=== PATIENT | male | born 1965 | race Caucasian/White ===

== ENCOUNTER 2018-09-02 14:26 | Outpatient (CLI) | payer MEDICAID | END 2018-09-02 14:27 | disposition home or self-care (01) | LOC: LAB.F 14:26 | PROVIDERS: ATTEND Nurse Practitioner | DX: Z79.01 Long term (current) use of anticoagulants (principal); I48.2 Chronic atrial fibrillation | CPT/HCPCS: 85610 ==

== ENCOUNTER 2018-09-09 15:04 | Outpatient (CLI) | payer MEDICARE, MEDICAID ==
[2018-09-09 17:45] LABS: BASOPHILS # (AUTO) 0.1 10^3/uL (0.0-0.1); BASOPHILS % (AUTO) 1.2 %; EOSINOPHILS # (AUTO) 0.1 10^3/uL (0.0-0.7); EOSINOPHILS % (AUTO) 1.5 %; HGB - HEMOGLOBIN 13.2 g/dL (14.0-18.0); LYMPHOCYTES # (AUTO) 1.2 10^3/uL (1.5-3.5); LYMPHOCYTES % (AUTO) 13.7 %; MEAN CORPUSCULAR HEMOGLOBIN 28.2 pg (27.0-31.0); MEAN PLATELET VOLUME 9.8 fL (7.4-11.4); MONOCYTES # (AUTO) 0.5 10^3/uL (0.0-1.0); NEUTROPHILS % (AUTO) 77.6 %; PLT - PLATELET COUNT 298 10^3/uL (130-450); RED BLOOD COUNT 4.67 10^6/uL (4.70-6.10); RED CELL DISTRIBUTION WIDTH 14.8 % (12.0-15.0)
[2018-09-09 18:00] LABS: ALBUMIN 3.6 g/dL (3.2-5.5); ALKALINE PHOSPHATASE 65 IU/L (42-121); ALT ALANINE AMINOTRANSFERASE 13 IU/L (10-60); AST ASPARTATE AMINOTRANSFERASE 16 IU/L (10-42); BILIRUBIN,TOTAL 0.7 mg/dL (0.2-1.0); BUN - BLOOD UREA NITROGEN 15 mg/dL (6-20); CALCIUM 8.9 mg/dL (8.5-10.3); CARBON DIOXIDE - CO2 35 mmol/L (21-32); CHLORIDE 94 mmol/L (101-111); CHOL/HDL RATIO 5.2 (<5.0); CHOLESTEROL 219 mg/dL; CREATININE 1.2 mg/dL (0.6-1.2); GFR - MDRD 63 (>89); GLUCOSE 122 mg/dL (70-100); HDL CHOLESTEROL 42 mg/dL; LDL CHOLESTEROL,CALCULATED 159 mg/dL; LDL/HDL RATIO 3.8 (<3.6); SODIUM 137 mmol/L (135-145); TOTAL PROTEIN 7.3 g/dL (6.7-8.2); VLDL CHOLESTEROL 18 mg/dL
== END 2018-09-09 15:05 | disposition home or self-care (01) ==
LOC: LAB.F 15:04
PROVIDERS: ATTEND Physician Assistant Medical
DX: Z79.01 Long term (current) use of anticoagulants (principal); Z00.00 Encounter for general adult medical examination without abnormal findings; I10 Essential (primary) hypertension; Z12.5 Encounter for screening for malignant neoplasm of prostate
CPT/HCPCS: 36415; 80053; 80061; 85025; 85610; G0103; 83721; 84153

== ENCOUNTER 2018-09-23 08:00 | Outpatient (CLI) | payer MEDICAID, MEDICARE | END 2018-09-23 23:59 | disposition home or self-care (01) | LOC: LAB.F 08:00 | PROVIDERS: ATTEND Physician Assistant Medical | DX: Z79.01 Long term (current) use of anticoagulants (principal) | CPT/HCPCS: 85610 ==

== ENCOUNTER 2018-10-06 13:53 | Outpatient (CLI) | payer MEDICARE, MEDICAID | END 2018-10-06 13:54 | disposition home or self-care (01) | LOC: LAB.F 13:53 | PROVIDERS: ATTEND Physician Assistant Medical | DX: Z79.01 Long term (current) use of anticoagulants (principal) | CPT/HCPCS: 85610 ==

== ENCOUNTER 2018-10-28 15:25 | Outpatient (CLI) | payer MEDICARE, MEDICAID ==
[2018-10-28 18:38] LABS: ABSOLUTE RETICS # AUTO 0.084 10^6/uL (0.020-0.110); BASOPHILS # (AUTO) 0.1 10^3/uL (0.0-0.1); BASOPHILS % (AUTO) 0.9 %; EOSINOPHILS # (AUTO) 0.1 10^3/uL (0.0-0.7); EOSINOPHILS % (AUTO) 0.9 %; HGB - HEMOGLOBIN 14.2 g/dL (14.0-18.0); LYMPHOCYTES # (AUTO) 1.7 10^3/uL (1.5-3.5); MEAN CORPUSCULAR HEMOGLOBIN 28.5 pg (27.0-31.0); MEAN CORPUSCULAR HGB CONC 31.9 g/dL (32.0-36.0); MEAN CORPUSCULAR VOLUME 89.4 fL (80.0-94.0); MEAN PLATELET VOLUME 11.4 fL (7.4-11.4); MONOCYTES # (AUTO) 0.8 10^3/uL (0.0-1.0); MONOCYTES % (AUTO) 7.3 %; NEUTROPHILS % (AUTO) 74.4 %; PLT - PLATELET COUNT 351 10^3/uL (130-450); RED BLOOD COUNT 4.98 10^6/uL (4.70-6.10); RED CELL DISTRIBUTION WIDTH 14.8 % (12.0-15.0); WHITE BLOOD COUNT 10.7 x10^3/uL (4.8-10.8)
[2018-10-28 19:18] LABS: FERRITIN 26.8 ng/mL (23.9-336.2)
[2018-10-28 19:21] LABS: FOLATE 12.5 ng/mL (5.90 - >24.8)
[2018-10-28 19:42] LABS: % IRON SATURATION 24 % (20-50); IRON 87 ug/dL (45-182); TOTAL IRON BINDING CAPACITY 356 ug/dL (250-450); TRANSFERRIN 254 mg/dL (180-329)
== END 2018-10-28 23:59 | disposition home or self-care (01) ==
LOC: LAB.N 15:25
PROVIDERS: ATTEND Family Medicine
DX: D64.9 Anemia, unspecified (principal)
CPT/HCPCS: 36415; 82607; 82728; 82746; 83540; 84466; 85025; 85044

== ENCOUNTER 2018-11-14 12:57 | Outpatient (CLI) | payer MEDICARE, MEDICAID ==
[2018-11-14 14:14] VITALS: BP 130/90
--- NOTE | 2018-11-14 14:14 | CONSULTATION NOTE ---
Information from patient questionnaire entered by Faby Concepcion. I have reviewed and concur with the information entered by Faby Concepcion. This document represents the service I personally performed and the decisions made by me, Matthew Thompson MD, [facility]. - History of Present Illness Chief Complaint: Observed pauses in breathing He had a CPAP + oxygen in [place]. He said the equipment helped. He moved here 6 months ago and the equipment was left in [place]. The patient tells me that he normally goes to bed around 2 am, and it takes him approximately 120 minutes to fall asleep. He takes Ambien 10 mg. He has been told that he snores loudly and irregularly at night. He has been observed to stop breathing in his sleep. His can still sleep in the same bed. He can recall waking up on the average of 4 times during the night. Most of the time he wakes up because of having to use the bathroom and his own snore. There is not a lot of tossing and turning in his sleep. Generally he can recall having dreams. He usually wakes up at 9:00am-12:00pm and does not feel refreshed. He usually does have a morning headache. During the day he complains of feeling sleepy and fatigued. He has fallen asleep while driving and has gone out of the trevor. He usually does not take naps during the day. If he naps, upon falling asleep during the day he denies having vivid dreams. There is no somniloquy (sleep talking) or somnambulism (sleep walking). He has never experienced sleep paralysis, cataplexy, or symptoms of restless leg syndrome. He reports having impaired concentration during the day. [place] Sleepiness Scale Score: 4 - Past Medical History Past Medical History: Congestive Heart Failure, Coronary Heart Disease, Arrythmia (atrial fibrillation), Fibromyalgia, Depression, Mood disorder, GERD, Other (AFib) - Allergies/Home Medications Allergies No Known Drug Allergies Allergy (Verified 11/02/18 10:45) Home Medications Acetaminophen [Tylenol Extra Strength] 2 tab ORAL Q8H PRN 11/02/18 [History Confirmed 11/02/18] Amlodipine Besylate 1 tab ORAL DAILY 11/02/18 [History Confirmed 11/02/18] Chlorthalidone 1 tab ORAL DAILY 11/02/18 [History Confirmed 11/02/18] Lisinopril 1 tab ORAL DAILY 11/02/18 [History Confirmed 11/02/18] Metoprolol Tartrate 1 tab PO DAILY 11/02/18 [History Confirmed 11/02/18] Zolpidem Tartrate [Ambien] 1 tab ORAL QPM PRN 11/02/18 [History Confirmed 11/02/18] omeprazole albuterol inhaler Brio inhaler warfarin Allergies and home medications reviewed: Yes - Social History The patient's occupation is a [employer]. Patient is and lives in [place]. Smoked in the past 12 months: Yes Cigarettes per day (20/pack): 2 Years of smokin Quit Date: 06/2018 Smoking Pack Years: 3.0 Alcohol use: Yes Amount and frequency: 1 drink Caffeine use: No - Review of Systems Cardiovascular: reports: high blood pressure, irregular heart rate or pulse, leg or foot swelling Respiratory: reports: wheeze Gastrointestinal: reports: heartburn, abdominal pain Neurological: reports: headaches. denies: seizure, head trauma, disorientation, speech dysfunction, gait or balance problems, fainting or unconsciousness, other: Psychiatric: reports: depression Ear/Nose/Throat: reports: wisdom teeth removed Endocrine: reports: increased urination - Physical Examination Vital signs obtained and documented by: Dr. Thompson Blood Pressure: 130/90 Cuff size: long Heart Rate: 88 O2 Saturation: 95 Height: 6 ft 3 in Weight (kg): 189.148 kg Body Mass Index: 52.1 BMI Classification: Class 3 Neck circumference: 18 Mood/affect: normal HEENT: No craniofacial malformation Nostrils: patent to airflow Turbinates: normal Septum: midline Mouth and throat: narrow oropharynx Soft palate: long Hard palate: normal Uvula: normal Tongue: normal in size Tonsils: 1+ Chin and jaw: normal size and position Neck: normal w/o lymphadenopathy or thyromegaly Heart: irregular rhythm Lungs: clear bilaterally Abdomen: soft Extremities: 1+ edema Neurologic: intact - Impression 1. Obstructive Sleep Apnea-Hypopnea Syndrome, as previously diagnosed but presently untreated because he left his CPAP in [place] when he moved here six months ago. He appears to be symptomatic for loud and irregular snoring, frequent awakening during the night, unrefreshed sleep, cognitive impairment, and excessive daytime sleepiness. Narrow oropharynx and obesity are common predisposing factors for obstructive sleep apnea-hypopnea syndrome. I recommend proceeding to polysomnography to confirm the diagnosis and to assess severity. If the patient has significant sleep disordered breathing, a manual CPAP titration study will also be performed to find the optimal treatment pressure. I informed the patient of what the sleep studies involve and after some discussion, obtained agreement to proceed. The pathophysiology of obstructive sleep apnea-hypopnea syndrome was discussed with the patient and health risks of cardiovascular and cerebrovascular disease if not treated. Risks of drowsy driving discussed in detail and patient advised to avoid long distance driving and to pick pulling machine operator at the first sign of drowsiness. Patient agreed to plan. - Plan Schedule polysomnography +- manual CPAP titration study. The studies will be performed in [place] because his weight is beyond the capacity of the beds here. Avoid long distance driving or driving when feeling sleepy. Avoid alcohol, sedative and muscle relaxant around bedtime. Attempt to lose weight. Review instructions provided by trained office staff on how to prepare for the sleep study. Return for follow-up after sleep study completed. I spent 100% of this 15 minute visit face to face with the patient with greater than 50% of this was spent time counseling the patient and coordination of care.
== END 2018-11-14 12:58 | disposition home or self-care (01) ==
LOC: SC 12:57
PROVIDERS: ATTEND Internal Medicine Pulmonary Disease
DX: G47.33 Obstructive sleep apnea (adult) (pediatric) (principal); Z87.891 Personal history of nicotine dependence
CPT/HCPCS: 99203; G0463; 99212

== ENCOUNTER 2018-11-29 13:51 | Outpatient (CLI) | payer MEDICARE, MEDICAID | END 2018-11-29 23:59 | disposition home or self-care (01) | LOC: LAB.N 13:51 | PROVIDERS: ATTEND Family Medicine | DX: I48.2 Chronic atrial fibrillation (principal); Z79.01 Long term (current) use of anticoagulants | CPT/HCPCS: 85610 ==

== ENCOUNTER 2018-12-07 10:31 | Outpatient (CLI) | payer MEDICARE, MEDICAID ==
[2018-12-07 12:35] LABS: HB2 TOTAL 14.1 g/dL; HEMOGLOBIN A1C 0.66 g/dL; HEMOGLOBIN A1C % 6.4 % (4.6-6.2)
== END 2018-12-07 23:59 | disposition home or self-care (01) ==
LOC: LAB.N 10:31
PROVIDERS: ATTEND Family Medicine
DX: Z13.1 Encounter for screening for diabetes mellitus (principal)
CPT/HCPCS: 36415; 83036

== ENCOUNTER 2019-01-26 11:52 | Outpatient (CLI) | payer MEDICARE, MEDICAID | END 2019-01-26 11:53 | disposition home or self-care (01) | LOC: LAB.S 11:52 | PROVIDERS: ATTEND Family Medicine | DX: Z79.01 Long term (current) use of anticoagulants (principal) | CPT/HCPCS: 85610 ==

== ENCOUNTER 2019-03-02 14:33 | Outpatient (CLI) | payer MEDICARE, MEDICAID ==
[2019-03-02 19:35] LABS: ALBUMIN 3.9 g/dL (3.2-5.5); BILIRUBIN,TOTAL 0.7 mg/dL (0.2-1.0); CALCIUM 9.2 mg/dL (8.5-10.3); CREATININE 1.4 mg/dL (0.6-1.2)
== END 2019-03-02 23:59 | disposition home or self-care (01) ==
LOC: LAB.N 14:33
PROVIDERS: ATTEND Family Medicine
DX: N28.9 Disorder of kidney and ureter, unspecified (principal)
CPT/HCPCS: 36415; 80053

== ENCOUNTER 2019-04-04 08:00 | Outpatient (CLI) | payer MEDICARE, MEDICAID ==
[2019-04-04 19:02] LABS: ALBUMIN 3.7 g/dL (3.2-5.5); ALBUMIN/GLOBULIN RATIO 0.9 (1.0-2.2); BILIRUBIN,TOTAL 0.5 mg/dL (0.2-1.0); CALCIUM 8.7 mg/dL (8.5-10.3); CREATININE 1.4 mg/dL (0.6-1.2); TOTAL PROTEIN 7.8 g/dL (6.7-8.2)
== END 2019-04-04 23:59 | disposition home or self-care (01) ==
LOC: LAB.N 08:00
PROVIDERS: ATTEND Family Medicine
DX: N28.9 Disorder of kidney and ureter, unspecified (principal)
CPT/HCPCS: 36415; 80053

== ENCOUNTER 2019-04-04 14:45 | Outpatient (CLI) | payer MEDICARE, MEDICAID ==
--- NOTE | 2019-04-05 09:42 | XRAY Report ---
Reason: FOOT PAIN,LEFT Procedure Date: 04/04/2019 Accession Number: [id number] / [id number] Procedure: XRN - Foot 3 View LT CPT Code: Final Report FULL RESULT: EXAM: LEFT FOOT RADIOGRAPHY EXAM DATE: 04/04/2019 03:07 PM. CLINICAL HISTORY: Foot pain, left. COMPARISON: None. TECHNIQUE: 3 views. FINDINGS: Bones: Mild inferior calcaneal spurring. No fracture. Joints: Normal. No subluxations. Soft Tissues: Normal. No soft tissue swelling. IMPRESSION: Mild inferior calcaneal spurring, correlate to plantar enthesopathy. RADIA
== END 2019-04-04 14:46 | disposition home or self-care (01) ==
LOC: DI.N 14:45
PROVIDERS: ATTEND Family Medicine
DX: M77.32 Calcaneal spur, left foot (principal); N28.9 Disorder of kidney and ureter, unspecified
CPT/HCPCS: 36415; 80053

== ENCOUNTER 2019-05-10 14:01 | Outpatient (CLI) | payer MEDICARE, MEDICAID | END 2019-05-10 14:02 | disposition home or self-care (01) | LOC: LAB.S 14:01 | PROVIDERS: ATTEND Family Medicine | DX: Z79.01 Long term (current) use of anticoagulants (principal) | CPT/HCPCS: 85610 ==

== ENCOUNTER 2019-06-09 17:02 | Outpatient (CLI) | payer MEDICARE, MEDICAID ==
--- NOTE | 2019-06-10 12:45 | XRAY Report ---
Reason: PAIN IN BL FEET AND BL ANKLES W MORBID OBESITY Procedure Date: 06/09/2019 Accession Number: [id number] / [id number] Procedure: XR - Foot 3 View RT CPT Code: Final Report FULL RESULT: EXAM: RIGHT FOOT RADIOGRAPHY EXAM DATE: 06/09/2019 05:30 PM. CLINICAL HISTORY: PAIN IN BL FEET AND BL ANKLES W MORBID OBESITY. COMPARISON: None. TECHNIQUE: 3 views. FINDINGS: Bones: Normal. No fractures or bone lesions. Joints: Normal. No subluxations. Soft Tissues: No significant soft tissue abnormalities. IMPRESSION: Negative foot radiography. RADIA
--- NOTE | 2019-06-10 12:52 | XRAY Report ---
Reason: PAIN IN BL FEET AND BL ANKLES W MORBID OBESITY Procedure Date: 06/09/2019 Accession Number: [id number] / [id number] Procedure: XR - Ankle 3 View BILAT CPT Code: Final Report FULL RESULT: EXAMS: 1. Right Ankle Radiography 2. Left Ankle Radiography EXAM DATE: 06/09/2019 05:31 PM. CLINICAL HISTORY: Bilateral ankle pain COMPARISON: None. TECHNIQUE: 3 views each ankle. FINDINGS: Right Ankle: Bones: Normal. No fractures or bone lesions. Joints: Normal. No effusion. No subluxations. The ankle mortise is normally aligned. Soft Tissues: Normal. No soft tissue swelling. Left Ankle: Bones: Normal. No fractures or bone lesions. Joints: Normal. No effusion. No subluxations. The ankle mortise is normally aligned. Soft Tissues: Normal. No soft tissue swelling. IMPRESSION: Negative bilateral ankle radiography. RADIA
== END 2019-06-09 17:03 | disposition home or self-care (01) ==
LOC: DI 17:02
PROVIDERS: ATTEND Podiatrist
DX: M79.671 Pain in right foot (principal); M79.672 Pain in left foot; M25.571 Pain in right ankle and joints of right foot; M25.572 Pain in left ankle and joints of left foot; E66.01 Morbid (severe) obesity due to excess calories

== ENCOUNTER 2019-07-04 07:34 | Day surgery (SDC) | payer MEDICARE, MEDICAID ==
[2019-07-04] MEDS ORDERED: LACTATED RINGERS 1,000 ML IV ONE (08:05)
--- NOTE | 2019-07-04 08:26 | ANESTHESIA ---
Pre-Anesthesia VS, & Labs - Diagnosis diverticulosis, rectal bleeding - Procedure colonoscopy Vital Signs: Temp Pulse Resp BP Pulse Ox 36 C L 100 24 181/110 H 94 07/04/19 07:47 07/04/19 07:47 07/04/19 07:47 07/04/19 07:47 07/04/19 07:47 Height 6 ft 4 in Weight (kg) 181.6 kg Body Mass Index 52.1 - NPO >8 hours - Lab Results Current Lab Results: Laboratory Tests 07/04/19 07:58: Whole Blood INR 1.2 07/04/19 07:55: POC Whole Bld Glucose 136 H Home Medications and Allergies Home Medications: Ambulatory Orders Acetaminophen/Cod 300/30 [Tylenol #3] 1 - 2 each PO Q6H PRN 06/27/19 Albuterol Sulf [Ventolin Hfa Inhaler] 1 - 2 puffs INH Q4HR PRN 06/27/19 Omeprazole 20 mg PO DAILY 06/27/19 Warfarin Sodium [Coumadin] 4 mg PO DAILY 06/27/19 Amlodipine Besylate 5 mg PO DAILY 11/02/18 Chlorthalidone 50 tab ORAL DAILY 11/02/18 Metoprolol Tartrate 50 mg PO DAILY 11/02/18 Zolpidem Tartrate [Ambien] 10 mg PO QPM PRN 11/02/18 lisinopriL [Lisinopril] 40 mg PO DAILY 11/02/18 Acetaminophen/Cod 300/30 [Tylenol #3] 1 - 2 each PO Q6H PRN 06/27/19 Albuterol Sulf [Ventolin Hfa Inhaler] 1 - 2 puffs INH Q4HR PRN 06/27/19 Omeprazole 20 mg PO DAILY 06/27/19 Warfarin Sodium [Coumadin] 4 mg PO DAILY 06/27/19 Allergies/Adverse Reactions: Allergies Allergy/AdvReac Type Severity Reaction Status Date / Time No Known Drug Allergies Allergy Verified 11/02/18 10:45 Anes History & Medical History - Anesthetic History Anesthesia Complications: reports: No previous complications Family history of Anesthesia Complications: Denies - Medical History Cardiovascular: reports: Hypertension, Atrial fibrillation Pulmonary: reports: Sleep apnea Gastrointestinal: reports: GERD, Other Urinary: reports: None Musculoskeletal: reports: Chronic back pain Endocrine/Autoimmune: reports: None Skin: reports: None Smoking Status: Light tobacco smoker Exam General: Alert Dental: WNL Mouth Opening: Greater than 4 Fingerbreadths Neck Mobility: Normal Mallampati classification: II Respiratory: Lungs clear Cardiovascular: Normal S1, Normal S2, Other (irregular, rate controlled) Plan Anesthesia Type: MAC Consent for Procedure(s) Verified and Reviewed: Yes Code Status: Attempt Resuscitation ASA classification: 3-Severe systemic disease Is this case an emergency?: No
[2019-07-04 10:27] VITALS: BP 135/99
== END 2019-07-04 07:35 | disposition home or self-care (01) ==
LOC: SDS 07:34
PROVIDERS: ATTEND Surgery
PROC: 0DBK8ZZ Excision of Ascending Colon, Via Natural or Artificial Opening Endoscopic (ICD-10-PCS; 2019-07-04)
PROC: 0DBM8ZZ Excision of Descending Colon, Via Natural or Artificial Opening Endoscopic (ICD-10-PCS; 2019-07-04)
PROC: 0DBN8ZZ Excision of Sigmoid Colon, Via Natural or Artificial Opening Endoscopic (ICD-10-PCS; principal; 2019-07-04 08:45)
DX: D12.2 Benign neoplasm of ascending colon (principal); K63.5 Polyp of colon; K57.30 Diverticulosis of large intestine without perforation or abscess without bleeding; K64.4 Residual hemorrhoidal skin tags; I48.91 Unspecified atrial fibrillation; I11.0 Hypertensive heart disease with heart failure; I50.9 Heart failure, unspecified; G47.30 Sleep apnea, unspecified; K21.9 Gastro-esophageal reflux disease without esophagitis; F17.200 Nicotine dependence, unspecified, uncomplicated; E66.01 Morbid (severe) obesity due to excess calories; Z68.43 Body mass index [BMI] 50.0-59.9, adult; Z79.01 Long term (current) use of anticoagulants
CPT/HCPCS: 45380; 45385; 85610; J7120

== ENCOUNTER 2019-08-08 15:05 | Outpatient (CLI) | payer MEDICARE, MEDICAID | END 2019-08-08 15:06 | disposition home or self-care (01) | LOC: LAB 15:05 | PROVIDERS: ATTEND Family Medicine | DX: Z79.01 Long term (current) use of anticoagulants (principal) | CPT/HCPCS: 85610 ==

== ENCOUNTER 2019-09-06 16:45 | Outpatient (CLI) | payer MEDICARE, MEDICAID | END 2019-09-06 16:46 | disposition home or self-care (01) | LOC: LAB 16:45 | PROVIDERS: ATTEND Family Medicine | DX: I48.20 Chronic atrial fibrillation, unspecified (principal); Z79.01 Long term (current) use of anticoagulants | CPT/HCPCS: 85610 ==

== ENCOUNTER 2019-10-27 12:22 | Outpatient (CLI) | payer MEDICARE, MEDICAID | END 2019-10-27 12:23 | disposition home or self-care (01) | LOC: LAB.S 12:22 | PROVIDERS: ATTEND Family Medicine | DX: Z79.01 Long term (current) use of anticoagulants (principal); I48.20 Chronic atrial fibrillation, unspecified | CPT/HCPCS: 85610 ==

== ENCOUNTER 2019-11-09 11:03 | Outpatient (CLI) | payer MEDICARE, MEDICAID ==
[2019-11-09 15:22] LABS: BASOPHILS # (AUTO) 0.1 10^3/uL (0.0-0.1); BASOPHILS % (AUTO) 0.7 %; EOSINOPHILS # (AUTO) 0.1 10^3/uL (0.0-0.7); EOSINOPHILS % (AUTO) 1.1 %; HGB - HEMOGLOBIN 13.9 g/dL (14.0-18.0); LYMPHOCYTES # (AUTO) 1.2 10^3/uL (1.5-3.5); LYMPHOCYTES % (AUTO) 11.2 %; MEAN CORPUSCULAR HEMOGLOBIN 29.6 pg (27.0-31.0); MEAN CORPUSCULAR HGB CONC 32.3 g/dL (32.0-36.0); MEAN CORPUSCULAR VOLUME 91.7 fL (80.0-94.0); MEAN PLATELET VOLUME 11.6 fL (7.4-11.4); MONOCYTES # (AUTO) 0.7 10^3/uL (0.0-1.0); MONOCYTES % (AUTO) 6.5 %; NEUTROPHILS # (AUTO) 8.7 10^3/uL (1.5-6.6); NEUTROPHILS % (AUTO) 80.1 %; PLT - PLATELET COUNT 369 10^3/uL (130-450); RED BLOOD COUNT 4.69 10^6/uL (4.70-6.10); WHITE BLOOD COUNT 10.9 x10^3/uL (4.8-10.8)
[2019-11-09 15:36] LABS: HB2 TOTAL 14.7 g/dL; HEMOGLOBIN A1C 0.68 g/dL; HEMOGLOBIN A1C % 6.4 % (4.6-6.2)
[2019-11-09 15:40] LABS: ALKALINE PHOSPHATASE 65 IU/L (42-121); ALT ALANINE AMINOTRANSFERASE 20 IU/L (10-60); AST ASPARTATE AMINOTRANSFERASE 23 IU/L (10-42); BILIRUBIN,TOTAL 0.9 mg/dL (0.2-1.0); BUN - BLOOD UREA NITROGEN 22 mg/dL (6-20); CARBON DIOXIDE - CO2 30 mmol/L (21-32); CHLORIDE 92 mmol/L (101-111); CHOL/HDL RATIO 6.7 (<5.0); CHOLESTEROL 260 mg/dL; CREATININE 1.5 mg/dL (0.6-1.2); GLUCOSE 169 mg/dL (70-100); HDL CHOLESTEROL 39 mg/dL; LDL CHOLESTEROL,CALCULATED 198 mg/dL; LDL/HDL RATIO 5.1 (<3.6); SODIUM 133 mmol/L (135-145); TOTAL PROTEIN 8.2 g/dL (6.7-8.2); VLDL CHOLESTEROL 23 mg/dL
[2019-11-09 16:05] LABS: CREATININE,URINE 288.3 mg/dL; MICROALBUM/CREATININE RATIO,UR 198.8 ug/mg (<30.0); MICROALBUMIN,URINE 57.3 mg/dL (0-300.0)
== END 2019-11-09 11:04 | disposition home or self-care (01) ==
LOC: LAB.S 11:03
PROVIDERS: ATTEND Physician Assistant
DX: Z00.00 Encounter for general adult medical examination without abnormal findings (principal); E11.9 Type 2 diabetes mellitus without complications; I48.91 Unspecified atrial fibrillation; D64.9 Anemia, unspecified; G47.33 Obstructive sleep apnea (adult) (pediatric); I10 Essential (primary) hypertension
CPT/HCPCS: 36415; 80053; 80061; 82043; 82570; 83036; 83721; 84443; 85025

== ENCOUNTER 2019-11-16 12:47 | Outpatient (CLI) | payer MEDICARE, MEDICAID ==
[2019-11-16 15:47] LABS: BASOPHILS # (AUTO) 0.1 10^3/uL (0.0-0.1); EOSINOPHILS # (AUTO) 0.1 10^3/uL (0.0-0.7); EOSINOPHILS % (AUTO) 0.8 %; HGB - HEMOGLOBIN 14.2 g/dL (14.0-18.0); LYMPHOCYTES # (AUTO) 1.5 10^3/uL (1.5-3.5); LYMPHOCYTES % (AUTO) 12.4 %; MEAN CORPUSCULAR HEMOGLOBIN 28.7 pg (27.0-31.0); MEAN CORPUSCULAR HGB CONC 31.5 g/dL (32.0-36.0); MEAN CORPUSCULAR VOLUME 91.1 fL (80.0-94.0); MEAN PLATELET VOLUME 11.9 fL (7.4-11.4); MONOCYTES # (AUTO) 0.7 10^3/uL (0.0-1.0); MONOCYTES % (AUTO) 5.8 %; NEUTROPHILS # (AUTO) 9.5 10^3/uL (1.5-6.6); NEUTROPHILS % (AUTO) 79.6 %; PLT - PLATELET COUNT 406 10^3/uL (130-450); RED BLOOD COUNT 4.95 10^6/uL (4.70-6.10); RED CELL DISTRIBUTION WIDTH 13.8 % (12.0-15.0)
[2019-11-16 16:25] LABS: FERRITIN 26.6 ng/mL (23.9-336.2)
[2019-11-16 16:27] LABS: CALCIUM 9.1 mg/dL (8.5-10.3); CREATININE 1.4 mg/dL (0.6-1.2); MAGNESIUM 1.5 mg/dL (1.7-2.8)
[2019-11-16 16:29] LABS: FOLATE 19.16 ng/mL (5.90 - >24.8)
== END 2019-11-16 12:48 | disposition home or self-care (01) ==
LOC: LAB.S 12:47
PROVIDERS: ATTEND Physician Assistant
DX: E87.6 Hypokalemia (principal); D64.9 Anemia, unspecified
CPT/HCPCS: 36415; 80048; 82607; 82728; 82746; 83540; 83735; 84466; 85025

== ENCOUNTER 2020-02-16 15:17 | Outpatient (CLI) | payer MEDICARE, MEDICAID | END 2020-02-16 15:18 | disposition home or self-care (01) | LOC: LAB.S 15:17 | PROVIDERS: ATTEND Family Medicine | DX: Z79.01 Long term (current) use of anticoagulants (principal) | CPT/HCPCS: 85610 ==

== ENCOUNTER 2020-03-06 11:50 | Outpatient (CLI) | payer MEDICARE, MEDICAID | END 2020-03-06 11:51 | disposition home or self-care (01) | LOC: LAB.S 11:50 | PROVIDERS: ATTEND Physician Assistant | DX: Z79.01 Long term (current) use of anticoagulants (principal) | CPT/HCPCS: 85610 ==

== ENCOUNTER 2020-03-28 09:47 | Outpatient (CLI) | payer MEDICARE, MEDICAID | END 2020-03-28 09:48 | disposition home or self-care (01) | LOC: LAB.S 09:47 | PROVIDERS: ATTEND Physician Assistant | DX: Z79.01 Long term (current) use of anticoagulants (principal) | CPT/HCPCS: 85610 ==

== ENCOUNTER 2020-04-17 12:21 | Outpatient (CLI) | payer MEDICARE, MEDICAID | END 2020-04-17 12:22 | disposition home or self-care (01) | LOC: LAB.S 12:21 | PROVIDERS: ATTEND Physician Assistant | DX: Z79.01 Long term (current) use of anticoagulants (principal) | CPT/HCPCS: 85610 ==

== ENCOUNTER 2020-06-16 17:34 | Emergency (ER) | payer MEDICARE, MEDICAID ==
[2020-06-16] MEDS ORDERED: SODIUM CHLORIDE 0.9% 1,000 ML IV STA (17:58)
--- NOTE | 2020-06-16 18:03 | ED Physician Documentation ---
PD HPI ABD PAIN - Stated complaint Stated Complaint: ABD PAIN / S/P SURGERY - Chief complaint Chief Complaint: Abd Pain - History obtained from History obtained from: Patient - Additional information Additional information: This is a 55-year-old gentleman with history of atrial fibrillation, previously on warfarin, and more recently on May 29 had a gastric bypass laparoscopically at [facility]. Since discharge from there he has been traveling around a lot. He went down to [place] after being kicked out by his sister with whom he lives. Visited some friends there and then subsequently was coming back through [place] and staying with a friend and somehow ended up at [facility] in [place] where per his description he had a supratherapeutic INR of 7 and may be some acute kidney injury related to poor p.o. intake because he scared to eat because the one time he did eat tomato soup he pooped all over the house. He is here today mostly with 3 to 4 days of left upper quadrant pain in the setting of recent laparoscopic Suresh-en-Y gastric bypass. He has no nausea but has not been eating. No bowel movements, but has not been eating. He also has poor sleep, says he has not slept in 3 to 4 weeks. And notes the periumbilical yeast infection. Review of Systems Ten Systems: 10 systems reviewed and negative Constitutional: reports: Reviewed and negative Nose: reports: Reviewed and negative Throat: reports: Reviewed and negative Cardiac: reports: Reviewed and negative Respiratory: reports: Reviewed and negative PD PAST MEDICAL HISTORY - Past Medical History Past Medical History: Yes - Past Surgical History Past Surgical History: Yes - Present Medications Home Medications: Ambulatory Orders Medication Instructions Recorded Confirmed Amlodipine Besylate 5 mg PO DAILY 11/02/18 07/04/19 Chlorthalidone 50 tab ORAL DAILY 11/02/18 07/04/19 Metoprolol Tartrate 50 mg PO DAILY 11/02/18 07/04/19 Zolpidem Tartrate [Ambien] 10 mg PO QPM PRN 11/02/18 07/04/19 lisinopriL [Lisinopril] 40 mg PO DAILY 11/02/18 06/27/19 Acetaminophen/Cod 300/30 [Tylenol 1 - 2 each PO Q6H PRN 06/27/19 07/04/19 #3] Albuterol Sulf [Ventolin Hfa 1 - 2 puffs INH Q4HR PRN 06/27/19 07/04/19 Inhaler] Omeprazole 20 mg PO DAILY 06/27/19 07/04/19 Warfarin Sodium [Coumadin] 4 mg PO DAILY 06/27/19 07/04/19 Metoprolol Succinate [Toprol Xl] 50 mg PO DAILY #30 06/16/20 Nicotine 7 mg Patch [Nicoderm] 1 each TOP Q24H #21 patch 06/16/20 Nystatin [Nystop] 1 applic TOP BID #3 bottle 06/16/20 Omeprazole 40 mg PO DAILY #30 cap 06/16/20 Quetiapine Fumarate [Seroquel] 200 mg PO QPM #30 06/16/20 - Allergies Allergies/Adverse Reactions: Allergies Allergy/AdvReac Type Severity Reaction Status Date / Time No Known Drug Allergies Allergy Verified 06/16/20 17:46 - Social History Does the pt smoke?: Yes Smoking Status: Current every day smoker Does the pt drink ETOH?: No Does the pt have substance abuse?: No - Immunizations Immunizations are current?: Yes - POLST Patient has POLST: No PD ED PE NORMAL - Vitals Vital signs reviewed: Yes - General General: Alert and oriented X 3, Other (He is clearly manic with rapid speech. Some tangentiality but not flight of ideas.) - HEENT HEENT: PERRL, EOMI - Neck Neck: Supple, no meningeal sign, No bony TTP - Cardiac Cardiac: No murmur, Other (rapid/irreg) - Respiratory Respiratory: No respiratory distress, Clear bilaterally - Abdomen Abdomen: Normal bowel sounds, Soft, Non tender, Other (There is a periumbilical yeast infection. Port sites are healing well.) - Back Back: No CVA TTP, No spinal TTP - Derm Derm: Normal color, No rash - Neuro Neuro: Alert and oriented X 3, Normal speech Results - Vitals Vitals: Vital Signs - 24 hr 06/16/20 06/16/20 06/16/20 17:37 17:54 19:10 Temperature 36 C L 36.5 C Heart Rate 135 H 135 H 101 H Respiratory 22 22 20 Rate Blood Pressure 150/77 H 150/71 H 156/105 H O2 Saturation 97 97 99 06/16/20 06/16/20 06/16/20 19:30 19:49 20:00 Temperature Heart Rate 120 H 116 H 100 Respiratory 20 16 18 Rate Blood Pressure 190/100 H 125/94 H 141/97 H O2 Saturation 98 98 98 06/16/20 06/16/20 06/16/20 20:30 21:00 21:30 Temperature 36.5 C Heart Rate 110 H 110 H 106 H Respiratory 18 18 16 Rate Blood Pressure 160/100 H 159/95 H 160/100 H O2 Saturation 97 95 97 Oxygen O2 Source Room air - EKG (time done) 1757 Rate: Rate (enter#) (125) Rhythm: Atrial fibrillation [place]: Normal Intervals: LBBB (incomplete) QRS: Normal Ischemia: Normal ST segments Computer interpretation: Agree with computer - Labs Labs: Laboratory Tests 06/16/20 06/16/20 06/16/20 18:30 18:30 18:30 WBC 8.7 RBC 4.19 L Hgb 13.0 L Hct 40.0 L MCV 95.5 H MCH 31.0 MCHC 32.5 RDW 16.1 H Plt Count 401 MPV 11.5 H Neut # (Auto) 6.0 Lymph # (Auto) 1.6 [place] # (Auto) 1.0 Eos # (Auto) 0.1 Baso # (Auto) 0.1 Absolute Nucleated RBC 0.00 Nucleated RBC % 0.0 PT 36.7 H INR 3.6 H Sodium 136 Potassium 3.5 Chloride 97 L Carbon Dioxide 26 Anion Gap 13.0 BUN 18 Creatinine 1.5 H Estimated GFR (MDRD) 49 L Glucose 116 H Calcium 9.1 Magnesium 1.3 L Total Bilirubin 1.0 AST 22 ALT 23 Alkaline Phosphatase 50 Total Protein 6.6 L Albumin 3.6 Globulin 3.0 Albumin/Globulin Ratio 1.2 Lipase 30 PD MEDICAL DECISION MAKING - ED course ED course: He presents from my perspective with basically 4 core issues: 1. He has abdominal pain, it is several weeks out from a laparoscopic Suresh-en-Y gastric bypass. This is in the setting of a recent admission to another hospital for what sounds like acute kidney injury and supratherapeutic INR. He is no longer on warfarin. Plan to recheck labs and give IV fluids and do a CT of the abdomen. He is also quite tachycardic, this may be related to dehydra tion but he is a prime candidate for postoperative PE. 2. He has a periumbilical yeast infection, this will be treated with nystatin. 3. He is manic. He is not sleeping. We will discharge him on a low-dose of a mood stabilizer pending follow-up with psychiatry which he is already planning to do. No indication for involuntary admission. 4. He is in rapid atrial fibrillation. This may be due to hypovolemia versus medical noncompliance versus illness. He will receive some IV fluids and IV metoprolol. Records from [facility] in [place] received and reviewed. He was admitted the for A. fib with RVR due to noncompliance and acute kidney injury with creatinine of 3.54. The next day his creatinine was 1.5. He was taken off of his warfarin for an INR of 8. After the first dose of IV metoprolol, his heart rate was in the 1 teens. This was repeated. After the second dose of metoprolol, his rate was controlled. CT scans were reviewed with him, no postoperative issues, the most concerning thing is that on the CT of the chest, there is no PE, but he has a concerning for centimeter by 2 cm masslike consolidation in the right lung base. I doubt this is pneumonia given the lack of white count or cough. He is a smoker. 1 month follow-up CT was recommended and discussed with the patient and he is understanding. Departure - Departure Disposition: 01 Home, Self Care Clinical Impression: Atrial fibrillation with RVR, Right lower lobe lung mass, Bipolar 1 disorder with moderate nelly Abdominal pain Qualifiers: Abdominal location: generalized Qualified Code(s): R10.84 - Generalized abdominal pain Condition: Good Record reviewed to determine appropriate education?: Yes Instructions: Abdominal Pain, Atrial Fibrillation Dc Follow-Up: YINKA OSHEA ARNP [Physician No Access] - Prescriptions: Nicotine 7 mg Patch [Nicoderm] 1 each TOP Q24H #21 patch Nystatin [Nystop] 1 applic TOP BID #3 bottle Omeprazole 40 mg PO DAILY #30 cap Quetiapine Fumarate [Seroquel] 200 mg PO QPM #30 Metoprolol Succinate [Toprol Xl] 50 mg PO DAILY #30 Comments: You were seen today for multiple issues, there is a yeast infection around your umbilical area for which I am prescribing nystatin. Regarding the abdominal pain we did not have any positive findings but you can start advancing your diet, but you should definitely follow-up with your gastric surgeon. We noted that you were in A. fib which was rapid, after a couple of doses of metoprolol it was much better. I am refilling your metoprolol, you need to take it. I am also prescribing nicotine patches. There is a concerning area at the bottom of your right lung. Not sure what it is, need to repeat CT in 1 month to make sure it is not progressing, and hopefully it is gone at that point. You also seem to be manic, we are starting Seroquel 200 mg at night. I am also prescribing a PPI for you which is fairly standard after gastric bypass surgery. Follow-up with your primary care physician, your gastric surgeon, and a psychiatrist. Return for new or worsening symptoms. Your INR today is still up at 3.6. Continue to not take your warfarin until it is back in range. I suspect your ongoing dose after the gastric bypass surgery may be very different than your usual dosing before the surgery. Discharge Date/Time: 06/16/20 21:42
[2020-06-16] MEDS ORDERED: METOPROLOL 5 MG/5 ML VIAL IVP STA ×2 (18:07→19:52)
[2020-06-16] MEDS ORDERED: IOPAMIDOL-300 50 ML VIAL ONE (18:12)
[2020-06-16] MEDS ORDERED: IOVERSOL 320 100 ML VIAL IVP ONE ×2 (18:12→20:50)
[2020-06-16 18:38] LABS: BASOPHILS # (AUTO) 0.1 10^3/uL (0.0-0.1); BASOPHILS % (AUTO) 0.9 %; EOSINOPHILS # (AUTO) 0.1 10^3/uL (0.0-0.7); EOSINOPHILS % (AUTO) 1.5 %; LYMPHOCYTES # (AUTO) 1.6 10^3/uL (1.5-3.5); LYMPHOCYTES % (AUTO) 18.3 %; MEAN CORPUSCULAR HGB CONC 32.5 g/dL (32.0-36.0); MEAN CORPUSCULAR VOLUME 95.5 fL (80.0-94.0); MEAN PLATELET VOLUME 11.5 fL (7.4-11.4); MONOCYTES % (AUTO) 10.9 %; NEUTROPHILS % (AUTO) 68.3 %; PLT - PLATELET COUNT 401 10^3/uL (130-450); RED BLOOD COUNT 4.19 10^6/uL (4.70-6.10); RED CELL DISTRIBUTION WIDTH 16.1 % (12.0-15.0); WHITE BLOOD COUNT 8.7 x10^3/uL (4.8-10.8)
[2020-06-16 18:59] LABS: INR 3.6 (0.8-1.2); PT - PROTHROMBIN TIME 36.7 secs (9.9-12.6)
[2020-06-16 19:04] LABS: ALBUMIN 3.6 g/dL (3.2-5.5); ALBUMIN/GLOBULIN RATIO 1.2 (1.0-2.2); CALCIUM 9.1 mg/dL (8.5-10.3); CREATININE 1.5 mg/dL (0.6-1.2); MAGNESIUM 1.3 mg/dL (1.7-2.8); TOTAL PROTEIN 6.6 g/dL (6.7-8.2)
[2020-06-16] MEDS ORDERED: IOPAMIDOL-300 50 ML VIAL PO ONE (20:50)
--- NOTE | 2020-06-16 21:03 | CT Report ---
PROCEDURE: ANGIO CHEST W/WO INDICATIONS: tachycardia post op, pe study CONTRAST: IV CONTRAST: Optiray 320 ml: 100 PO CONTRAST: *NO PO CONTRAST TECHNIQUE: After the administration of intravenous contrast, 2 mm thick sections acquired from the pulmonary api hilda to the posterior costophrenic angles. 3-dimensional maximum intensity projection (MIP) coronal a nd sagittal reformats were then acquired through the thorax. For radiation dose reduction, the follow ing was used: automated exposure control, adjustment of mA and/or kV according to patient size. COMPARISON: None FINDINGS: Image quality: Excellent. Pulmonary arteries: Pulmonary arteries are normal in size, and demonstrate no intraluminal filling d efects to suggest central pulmonary embolism. Lungs and pleura: 4.0 x 2.7 cm masslike consolidation in the right lung base. Lungs otherwise clear. No pleural effusions or pneumothorax. Central and peripheral airways are patent. Mediastinum: Heart size is normal, without pericardial effusion. Scattered after static calcificati on is noted in the left coronary vasculature. No mediastinal or hilar adenopathy. Thoracic aorta is normal in caliber and enhancement. Atherosclerotic calcifications noted in the aortic arch. Esophagus is normal in caliber, without hiatal hernia. Bones and chest wall: No suspicious bony lesions. Ribs and thoracic spine appear intact throughout. Spine degenerative disc disease and facet arthropathy are noted. The thyroid is normal. No axillar y or supraclavicular adenopathy. Abdomen: Postsurgical changes compatible with gastric bypass. Visualized upper abdominal solid organ s appear normal in the early arterial phase of enhancement. IMPRESSION: 1. No pulmonary embolus. 2. 4.0 x 2.7 cm masslike consolidation in the right lung base. Finding may represent subsegmental ate lectasis, pneumonia or aspiration, however follow-up CT scan in one month is recommended to exclude u nderlying neoplastic process. 3. Atherosclerosis including the left coronary vasculature. 4. No pleural effusions. Reviewed by: Joy Lucas MD, PhD on 06/16/2020 9:02 PM PST Approved by: Joy Lucas MD, PhD on 06/16/2020 9:02 PM PST Station ID: [id number]
--- NOTE | 2020-06-16 21:10 | CT Report ---
PROCEDURE: Abdomen/Pelvis W INDICATIONS: IV and PO, post GB RUQ pain CONTRAST: IV CONTRAST: Optiray 320 ml: 100 PO CONTRAST: Optiray 320 ml50 TECHNIQUE: After the administration of injury postsurgical changes compatible with gastric bypass surgery. contr ast, 5 mm thick sections acquired from the diaphragms to the symphysis. 5 mm thick coronal and sagit felipe reformats were acquired. For radiation dose reduction, the following was used: automated exposu re control, adjustment of mA and/or kV according to patient size. COMPARISON: None. FINDINGS: Image quality: Excellent. ABDOMEN: Lung bases: Masslike consolidation of the right lung base is guided dedicated CT scan of the chest. H eart size is normal. Solid organs: Liver and spleen are normal in size and enhancement. Gallbladder is normal. Biliary system is non dilated. Pancreas enhances normally. No adrenal nodules. Kidneys demonstrate normal size and enhancement, without hydronephrosis. 1 mm nonobstructing right renal cortical stone. 1-2 mm nonobstructing left renal cortical stone. Peritoneum and bowel: Bowel loops demonstrate normal wall thickness and caliber. Scattered diverticu li noted in the colon without evidence of diverticulitis. No free fluid or air. Appendix is normal. Nodes and vessels: No retroperitoneal or mesenteric adenopathy by size criteria. Aorta and inferior vena cava are normal in size. Scattered atherosclerotic calcifications are noted in the abdominal an d pelvic vasculature. Miscellaneous: No ventral hernias. PELVIS: Genitourinary: Bladder wall thickness is normal. Miscellaneous: No inguinal adenopathy. Small fat-containing bilateral inguinal hernias. Bones: No suspicious bony lesions. No vertebral body compression fractures. Spine degenerative disc disease and facet arthropathy are noted. IMPRESSION: 1. Status post gastric bypass. 2. No free fluid or free air. 3. No dilated loops of bowel. 4. Small 1-2 mm nonobstructing bilateral renal cortical stones. 5. Colonic diverticulosis without evidence of diverticulitis. 6. Appendix is normal. Reviewed by: Joy Lucas MD, PhD on 06/16/2020 9:09 PM PST Approved by: Joy Lucas MD, PhD on 06/16/2020 9:09 PM PST Station ID: [id number]
[2020-06-16] MEDS ORDERED: QUEtiapine 100 MG TABLET PO STA (21:23)
[2020-06-16] MEDS ORDERED: METOPROLOL SUCCINATE 50 MG TABLET PO STA (21:23)
[2020-06-16 21:35] VITALS: BP 160/100
== END 2020-06-16 21:42 | disposition home or self-care (01) ==
LOC: ED 17:34
DX: R10.84 Generalized abdominal pain (principal); Z98.84 Bariatric surgery status; B37.2 Candidiasis of skin and nail; I48.91 Unspecified atrial fibrillation; I44.7 Left bundle-branch block, unspecified; R91.8 Other nonspecific abnormal finding of lung field; F17.200 Nicotine dependence, unspecified, uncomplicated; F31.12 Bipolar disorder, current episode manic without psychotic features, moderate; R79.1 Abnormal coagulation profile
CPT/HCPCS: 36415; 71275; 74177; 80053; 83690; 83735; 85025; 85610; 93005; 96361; 96374; 99284; A9270; Q9967

== ENCOUNTER 2020-07-25 17:27 | Outpatient (CLI) | payer MEDICARE, MEDICAID ==
--- OUTSIDE RECORDS SUMMARY | 2020-07-31 01:21 | EXTERNAL MEDICAL SUMMARY RPT | Continuity of Care Document ---
:1965 Demographics Phone Unavailable Preferred Language Unknown Marital Status Unknown Moravian Affiliation Unknown Race Unknown Ethnic Group Unknown Author Organization [place] Address [address] [place] [address] Phone Problems date description facility [id number] Body mass index [BMI] 45.0-49.9, adult [facility] 61546824 Chronic kidney disease, stage 3a [facility] 06130866 Essential (primary) hypertension [facility] 22658237 senior living (current) use of oral [facility] hypoglycemic drugs 66089894 Mixed hyperlipidemia [facility] 96884036 Morbid (severe) obesity due to excess [facility] calories 19724325 Type 2 diabetes mellitus without [facility] complications [id number] Post procedure check up [facility] [id number] Atrial Fibrillation AFIB [facility] Social History date description facility [id number]
== END 2020-07-25 17:28 | disposition critical access hospital (66) ==
LOC: EMS 17:27
DX: M79.672 Pain in left foot (principal); M79.671 Pain in right foot; M25.562 Pain in left knee; M25.561 Pain in right knee; M79.602 Pain in left arm; M79.601 Pain in right arm; I48.91 Unspecified atrial fibrillation
CPT/HCPCS: A0425; A0427

== ENCOUNTER 2020-07-25 17:59 | Emergency (ER) | payer MEDICARE, MEDICAID ==
[2020-07-25] MEDS ORDERED: SODIUM CHLORIDE 0.9% 1,000 ML IV STA ×3 (18:45→20:01)
[2020-07-25 19:05] LABS: BASOPHILS # (AUTO) 0.1 10^3/uL (0.0-0.1); BASOPHILS % (AUTO) 0.6 %; EOSINOPHILS # (AUTO) 0.1 10^3/uL (0.0-0.7); EOSINOPHILS % (AUTO) 0.7 %; HCT - HEMATOCRIT 37.5 % (42.0-52.0); HGB - HEMOGLOBIN 12.5 g/dL (14.0-18.0); LYMPHOCYTES # (AUTO) 1.5 10^3/uL (1.5-3.5); LYMPHOCYTES % (AUTO) 9.6 %; MEAN CORPUSCULAR HEMOGLOBIN 31.1 pg (27.0-31.0); MEAN CORPUSCULAR HGB CONC 33.3 g/dL (32.0-36.0); MEAN CORPUSCULAR VOLUME 93.3 fL (80.0-94.0); MEAN PLATELET VOLUME 11.1 fL (7.4-11.4); MONOCYTES # (AUTO) 0.9 10^3/uL (0.0-1.0); MONOCYTES % (AUTO) 6.2 %; NEUTROPHILS # (AUTO) 12.6 10^3/uL (1.5-6.6); NEUTROPHILS % (AUTO) 82.5 %; PLT - PLATELET COUNT 392 10^3/uL (130-450); RED BLOOD COUNT 4.02 10^6/uL (4.70-6.10); RED CELL DISTRIBUTION WIDTH 13.6 % (12.0-15.0); WHITE BLOOD COUNT 15.2 x10^3/uL (4.8-10.8)
[2020-07-25 19:24] LABS: ALBUMIN 3.2 g/dL (3.2-5.5); ALBUMIN/GLOBULIN RATIO 0.7 (1.0-2.2); BILIRUBIN,TOTAL 0.9 mg/dL (0.2-1.0); CALCIUM 9.2 mg/dL (8.5-10.3); CREATININE 1.8 mg/dL (0.6-1.2); POTASSIUM 3.6 mmol/L (3.5-5.0); TOTAL PROTEIN 7.7 g/dL (6.7-8.2)
[2020-07-25 19:38] LABS: INR 1.4 (0.8-1.2); PT - PROTHROMBIN TIME 15.7 secs (9.9-12.6)
[2020-07-25] MEDS ORDERED: diltiaZEM INJ 5 MG/ML VIAL IVP STA (19:45)
--- NOTE | 2020-07-25 19:52 | ED Physician Documentation ---
History of Present Illness - Stated complaint Stated Complaint: WEAKNESS - Chief complaint Chief Complaint: Cardiac - History obtained from History obtained from: Patient - History of Present Illness Timing: Other (1-2 months, worse over the past week.) Pain level max: 6 Pain level now: 4 - Additonal information Additional information: 55 year old male with pain in his bilateral feet and legs. States worse with walking. Patient has a history of atrial fibrillation and is supposed to be on metoprolol and warfarin. He was off his warfarin secondary to a supratherapeutic INR. Has not restarted it. Patient states that about 2 months ago he had gastric bypass surgery at [facility]. Review of Systems Ten Systems: 10 systems reviewed and negative Constitutional: denies: Fever, Chills Ears: denies: Ear pain Nose: denies: Rhinorrhea / runny nose, Congestion Throat: denies: Sore throat Cardiac: denies: Chest pain / pressure Respiratory: denies: Cough GI: denies: Nausea, Vomiting, Diarrhea Skin: denies: Rash Musculoskeletal: denies: Neck pain, Back pain Neurologic: denies: Headache PD PAST MEDICAL HISTORY - Past Medical History Past Medical History: Yes Cardiovascular: Hypertension, Atrial fibrillation Psych: Anxiety Musculoskeletal: Gout - Past Surgical History Past Surgical History: Yes General: Bowel surgery - Present Medications Home Medications: Ambulatory Orders Medication Instructions Recorded Confirmed Chlorthalidone 50 tab ORAL DAILY 11/02/18 07/25/20 Metoprolol Tartrate 50 mg PO DAILY 11/02/18 07/25/20 Zolpidem Tartrate [Ambien] 10 mg PO QPM PRN 11/02/18 07/25/20 lisinopriL [Lisinopril] 40 mg PO DAILY 11/02/18 07/25/20 Albuterol Sulf [Ventolin Hfa 1 - 2 puffs INH Q4HR PRN 06/27/19 07/25/20 Inhaler] Warfarin Sodium [Coumadin] 4 mg PO DAILY 06/27/19 07/25/20 Omeprazole 40 mg PO DAILY #30 cap 06/16/20 07/25/20 Quetiapine Fumarate [Seroquel] 200 mg PO QPM #30 06/16/20 07/25/20 Apixaban [Eliquis] 5 mg PO BID #74 tablet 07/25/20 Cyclobenzaprine [Flexeril] 10 mg PO TID PRN 07/25/20 07/25/20 Gabapentin [Neurontin] 200 mg PO DAILY PM 07/25/20 07/25/20 Oxycodone HCl/Acetaminophen 1 - 2 each PO Q6H PRN #14 tablet 07/25/20 [Percocet 5-325 mg Tablet] - Allergies Allergies/Adverse Reactions: Allergies Allergy/AdvReac Type Severity Reaction Status Date / Time No Known Drug Allergies Allergy Verified 06/16/20 17:46 - Social History Does the pt smoke?: Yes Smoking Status: Current every day smoker Does the pt drink ETOH?: No Does the pt have substance abuse?: No - Immunizations Immunizations are current?: Yes - POLST Patient has POLST: No PD ED PE NORMAL - Vitals Vital signs reviewed: Yes - General General: Alert and oriented X 3, No acute distress, Well developed/nourished - HEENT HEENT: PERRL, Moist mucous membranes - Neck Neck: Supple, no meningeal sign - Cardiac Cardiac: Other (Irregular, tachycardic) - Respiratory Respiratory: No respiratory distress, Clear bilaterally - Abdomen Abdomen: Soft, Non tender, Non distended, Other (Incisions are well-healed. No signs of infection on the abdominal wall) - Back Back: No CVA TTP, No spinal TTP - Derm Derm: Warm and dry - Extremities Extremities: No edema - Neuro Neuro: Alert and oriented X 3 - Psych Psych: Normal mood, Normal affect Results - Vitals Vitals: Vital Signs - 24 hr 07/25/20 22:41 Temperature 36.5 C Heart Rate 89 Respiratory 20 Rate Blood Pressure 124/85 H O2 Saturation 99 Oxygen O2 Source Room air - EKG (time done) 1805 Rate: Rate (enter#) (142) Rhythm: Atrial fibrillation (w/RVR) [place]: Normal QRS: Normal Ischemia: Non specific changes (rate related) - Labs Labs: Laboratory Tests 07/25/20 07/25/20 07/25/20 19:00 19:00 19:00 WBC 15.2 H RBC 4.02 L Hgb 12.5 L Hct 37.5 L MCV 93.3 MCH 31.1 H MCHC 33.3 RDW 13.6 Plt Count 392 MPV 11.1 Neut # (Auto) 12.6 H Lymph # (Auto) 1.5 [place] # (Auto) 0.9 Eos # (Auto) 0.1 Baso # (Auto) 0.1 Absolute Nucleated RBC 0.00 Nucleated RBC % 0.0 PT 15.7 H INR 1.4 H Sodium 137 Potassium 3.6 Chloride 100 L Carbon Dioxide 21 Anion Gap 16.0 H BUN 42 H Creatinine 1.8 H Estimated GFR (MDRD) 39 L Glucose 135 H Calcium 9.2 Total Bilirubin 0.9 AST 28 ALT 28 Alkaline Phosphatase 74 Total Creatine Kinase Total Protein 7.7 Albumin 3.2 Globulin 4.5 H Albumin/Globulin Ratio 0.7 L Lipase 26 Urine Color Urine Clarity Urine pH Ur Specific Collins Urine Protein Urine Glucose (UA) Urine Ketones Urine Occult Blood Urine Nitrite Urine Bilirubin Urine Urobilinogen Ur Leukocyte Esterase Urine RBC Urine WBC Ur Squamous Epith Cells Urine Crystals Urine Bacteria Ur Microscopic Review Urine Culture Comments 07/25/20 07/25/20 19:00 20:30 WBC RBC Hgb Hct MCV MCH MCHC RDW Plt Count MPV Neut # (Auto) Lymph # (Auto) [place] # (Auto) Eos # (Auto) Baso # (Auto) Absolute Nucleated RBC Nucleated RBC % PT INR Sodium Potassium Chloride Carbon Dioxide Anion Gap BUN Creatinine Estimated GFR (MDRD) Glucose Calcium Total Bilirubin AST ALT Alkaline Phosphatase Total Creatine Kinase 20 L Total Protein Albumin Globulin Albumin/Globulin Ratio Lipase Urine Color YELLOW Urine Clarity SL. CLOUDY Urine pH 5.0 Ur Specific [place] >=1.030 H Urine Protein 30 H Urine Glucose (UA) NEGATIVE Urine Ketones TRACE Urine Occult Blood NEGATIVE Urine Nitrite NEGATIVE Urine Bilirubin NEGATIVE Urine Urobilinogen 0.2 (NORMAL) Ur Leukocyte Esterase NEGATIVE Urine RBC None Seen Urine WBC 0-3 Ur Squamous Epith Cells NONE SEEN Urine Crystals 26-50 Uric Acid Urine Bacteria Few Ur Microscopic Review INDICATED Urine Culture Comments NOT INDICATED - Rads (name of study) CT chest Radiology: Prelim report reviewed, EMP read contemporaneously, See rad report duplex US B LE Radiology: Prelim report reviewed, EMP read contemporaneously, See rad report PD MEDICAL DECISION MAKING - ED course Complexity details: reviewed results, re-evaluated patient, considered differential, d/w patient ED course: 55-year-old male presents with atrial fibrillation with rapid ventricular response, dehydration and leg pain. Blood pressure improved with IV fluids. Heart rate was well controlled with the dose of diltiazem. He has not been taking his metoprolol. His INR is now subtherapeutic. Appears to have a DVT in the mid to distal right peroneal vein. Short interval follow-up is recommended. Patient will follow up with his doctor for this. He had been on warfarin in the past, we discussed keeping him on warfarin, he would like to try Eliquis. Therefore we will trial him on Eliquis and see how he progresses. He will follow up with his doctor for further care this week. Patient feels much better. Well-appearing, nontoxic. He will follow up with his doctor for the masslike consolidation in the right lung base as well. Patient counseled regarding signs and symptoms for which I believe and urgent re-evaluation would be necessary. Patient with good understanding of and agreement to plan and is comfortable going home at this time This document was made in part using voice recognition software. While efforts are made to proofread this document, sound alike and grammatical errors may occur. IMPRESSION: 1. Stable examination compared to 06/16/2020. 2. Masslike consolidation in right lung base is unchanged. Neoplastic process is not excluded by this study. IMPRESSION: Presumed deep venous thrombosis involving the mid to distal right peroneal vein with noncompressible appearance. Recommend short interval follow-up in one week to exclude proximal propagation of clot. No evidence of left lower extremity deep venous thrombosis. Findings are concordant with the preliminary study interpretation provided at the time of the study. Departure - Departure Disposition: 01 Home, Self Care Clinical Impression: Atrial fibrillation with RVR, Right lower lobe lung mass DVT (deep venous thrombosis) Qualifiers: DVT location: lower extremity Affected thrombotic vein of extremity: peroneal Chronicity: acute Laterality: right Qualified Code(s): I82.451 - Acute embolism and thrombosis of right peroneal vein Leg pain Qualifiers: Laterality: bilateral Qualified Code(s): M79.604 - Pain in right leg Condition: Good Instructions: ED Afib, ED DVT Follow-Up: Chuy Jennings MD [Primary Care Provider] - Prescriptions: Apixaban [Eliquis] 5 mg PO BID #74 tablet Oxycodone HCl/Acetaminophen [Percocet 5-325 mg Tablet] 1 - 2 each PO Q6H PRN #14 tablet PRN Reason: pain Comments: We will stop your warfarin and change you to Eliquis. You may have a DVT in your right lower extremity, and the peroneal vein, which is in your calf. This is not definitive, but as you need to be anticoagulated for atrial fibrillation, we will treat you as if you do have a DVT. Monitor yourself for signs of bleeding, just like when you are on the warfarin. Continue your other medications at home as prescribed. Follow-up with your doctor for further care including likely referral for the mass in the right lower lobe that was present on your prior CT and is still present today. This will likely need to be biopsied at [facility]. Do not drink alcohol or drive while on narcotic pain medicine. Note that many narcotic pain relievers also contain tylenol/acetaminophen. Please ensure that your total dose of acetaminophen from all sources does not exceed 3 grams (3000mg) per day. You may constipated on this medication, take a stool softener such as "Colace" twice a day while you are on it. Also recommend a ovrm-scu-aruexew laxative such as senna or MiraLAX any day that you do not have a bowel movement. If you received narcotic pain medication in the emergency department, do not drive or operate machinery for the next 24 hours. Discharge Date/Time: 07/25/20 22:53
[2020-07-25 20:44] LABS: GLUCOSE, URINE (UA) NEGATIVE (NEGATIVE); KETONES,URINE (UA) TRACE mg/dL (NEGATIVE); LEUKOCYTE ESTERASE, URINE NEGATIVE (NEGATIVE); NITRITE,URINE NEGATIVE (NEGATIVE); OCCULT BLOOD,URINE NEGATIVE (NEGATIVE); PROTEIN,URINE 30 mg/dL (NEGATIVE); UROBILINOGEN,URINE 0.2 (NORMAL) E.U./dL (NORMAL)
[2020-07-25] MEDS ORDERED: IOVERSOL 320 100 ML VIAL IVP ONE ×2 (20:44→21:07)
[2020-07-25 20:47] LABS: CLARITY,URINE SL. CLOUDY (CLEAR)
[2020-07-25 20:48] LABS: BILIRUBIN,URINE NEGATIVE (NEGATIVE); ICTOTEST,URINE NEGATIVE
[2020-07-25 20:58] LABS: BACTERIA,URINE Few /HPF (None Seen); CRYSTALS,URINE 26-50 Uric Acid /LPF; RBC,URINE None Seen /HPF (0-5); SQUAMOUS EPITHELIAL CELL,UR NONE SEEN (<= Few); WBC,URINE 0-3 /HPF (0-3)
--- NOTE | 2020-07-25 21:55 | CT Report ---
PROCEDURE: CHEST W INDICATIONS: RLL mass CONTRAST: IV CONTRAST: Optiray 320 ml: 100 PO CONTRAST: *NO PO CONTRAST TECHNIQUE: After the administration of intravenous contrast, 5 mm thick sections acquired from the pulmonary api hilda to the posterior costophrenic angles. 7 mm thick coronal MIP reformats were acquired. For radia tion dose reduction, the following was used: automated exposure control, adjustment of mA and/or kV according to patient size. COMPARISON: None. FINDINGS: Image quality: Excellent. Lungs and pleura: Masslike opacity in the chest but right lower lobe is stable compared to 06/16/2020. No pleural effusions or pneumothorax. Central and peripheral airways are patent and normal in calib er. Mediastinum: Heart size is normal. Atherosclerotic calcifications noted in the aortic arch and the c oronary vasculature. No pericardial effusion. No mediastinal or hilar adenopathy by size criteria. Thoracic aorta and central pulmonary arteries are normal in size. Esophagus is normal in caliber. N o hiatal hernia. Bones and chest wall: No suspicious bony lesions. No vertebral body compression fractures. Gross No axillary or supraclavicular adenopathy by size criteria. Thyroid gland is within normal limits. Abdomen: Post surgical changes compatible with gastric bypass. Visualized upper abdominal solid orga ns appear normal. Upper abdominal bowel loops are normal in caliber. IMPRESSION: 1. Stable examination compared to 06/16/2020. 2. Masslike consolidation in right lung base is unchanged. Neoplastic process is not excluded by this study. Reviewed by: Joy Lucas MD, PhD on 07/25/2020 9:54 PM PDT Approved by: Joy Lucas MD, PhD on 07/25/2020 9:54 PM PDT Station ID: [id number]
[2020-07-25] MEDS ORDERED: APIXABAN 5 MG TABLET PO STA (22:24)
[2020-07-25] MEDS ORDERED: oxyCODONE 5 MG TABLET PO STA (22:24)
[2020-07-25 22:43] VITALS: BP 124/85
--- NOTE | 2020-07-26 08:22 | Ultrasound Report ---
PROCEDURE: Duplex Ext Veins Bilateral INDICATIONS: Ronan Youhenrique TECHNIQUE: Real-time imaging, as well as color and pulse Doppler interrogation, were performed of the deep veins of both legs from the inguinal ligament to the popliteal fossa. COMPARISON: None FINDINGS: Noncompressible appearance of the right peroneal vein, presumably due to partially occlusi ve deep venous thrombosis. Remainder of the right lower extremity, and the left lower extremity vessels appear grossly patent. T here is a 5 x 1.3 x 2.7 cm Simon's cyst. Suboptimal evaluation due to body habitus. IMPRESSION: Presumed deep venous thrombosis involving the mid to distal right peroneal vein with noncompressible appearance. Recommend short interval follow-up in one week to exclude proximal propagation of clot. N o evidence of left lower extremity deep venous thrombosis. Findings are concordant with the preliminary study interpretation provided at the time of the study. Reviewed by: Chris Sue MD on 07/26/2020 8:20 AM PDT Approved by: Chris Sue MD on 07/26/2020 8:20 AM PDT Station ID: [id number]
--- OUTSIDE RECORDS SUMMARY | 2020-07-31 01:20 | EXTERNAL MEDICAL SUMMARY RPT | Continuity of Care Document ---
:1965 Demographics Phone Unavailable Preferred Language Unknown Marital Status Unknown Cheondoism Affiliation Unknown Race Unknown Ethnic Group Unknown Author Organization [place] [address] [place] [address] Phone Problems date description facility [id number] Body mass index [BMI] 45.0-49.9, adult [facility] [id number] Chronic kidney disease, stage 3a [facility] [id number] Essential (primary) hypertension [facility] [id number] [facility] (current) use of oral [facility] hypoglycemic drugs [id number] Mixed hyperlipidemia [facility] 80246396 Morbid (severe) obesity due to excess [facility] calories 92112235 Type 2 diabetes mellitus without [facility] complications [id number] Post procedure check up [facility] [id number] Atrial Fibrillation AFIB [facility] Social History date description facility [id number]
== END 2020-07-25 22:53 | disposition home or self-care (01) ==
LOC: EDUNIT# → ED 17:59
DX: I48.91 Unspecified atrial fibrillation (principal); R91.8 Other nonspecific abnormal finding of lung field; I82.451 Acute embolism and thrombosis of right peroneal vein; M79.604 Pain in right leg; M79.605 Pain in left leg; E86.0 Dehydration; I10 Essential (primary) hypertension; F17.200 Nicotine dependence, unspecified, uncomplicated
CPT/HCPCS: 36415; 71260; 80053; 81001; 82550; 83690; 85025; 85610; 93005; 93970; 96361; 96374; 99283; 99284; A9270; Q9967; 81003; 87086

== ENCOUNTER 2020-08-26 13:58 | Outpatient (CLI) | payer MEDICARE, MEDICAID ==
--- NOTE | 2020-08-26 15:02 | XRAY Report ---
PROCEDURE: Foot 2 View BILAT INDICATIONS: ANKLE/FOOT PX TECHNIQUE: 4 views of the foot were acquired. COMPARISON: Contralateral foot bilaterally. FINDINGS: Bones: No fractures or dislocations. No suspicious bony lesions. Soft tissues: No tibiotalar joint effusion. Achilles tendon appears normal. IMPRESSION: No trauma found, no evidence of significant degenerative change identified. Reviewed by: Orlin Zacarias MD on 08/26/2020 3:00 PM PDT Approved by: Orlin Zacarias MD on 08/26/2020 3:00 PM PDT Station ID: [id number]
[2020-08-26 20:23] LABS: BASOPHILS # (AUTO) 0.1 10^3/uL (0.0-0.1); BASOPHILS % (AUTO) 0.8 %; EOSINOPHILS # (AUTO) 0.2 10^3/uL (0.0-0.7); EOSINOPHILS % (AUTO) 1.8 %; HCT - HEMATOCRIT 41.3 % (42.0-52.0); HGB - HEMOGLOBIN 13.1 g/dL (14.0-18.0); LYMPHOCYTES # (AUTO) 1.7 10^3/uL (1.5-3.5); LYMPHOCYTES % (AUTO) 19.1 %; MEAN CORPUSCULAR HEMOGLOBIN 30.4 pg (27.0-31.0); MEAN CORPUSCULAR HGB CONC 31.7 g/dL (32.0-36.0); MEAN CORPUSCULAR VOLUME 95.8 fL (80.0-94.0); MEAN PLATELET VOLUME 12.5 fL (7.4-11.4); MONOCYTES # (AUTO) 0.6 10^3/uL (0.0-1.0); MONOCYTES % (AUTO) 6.9 %; NEUTROPHILS # (AUTO) 6.1 10^3/uL (1.5-6.6); NEUTROPHILS % (AUTO) 70.9 %; PLT - PLATELET COUNT 354 10^3/uL (130-450); RED BLOOD COUNT 4.31 10^6/uL (4.70-6.10); RED CELL DISTRIBUTION WIDTH 14.7 % (12.0-15.0); WHITE BLOOD COUNT 8.7 x10^3/uL (4.8-10.8)
[2020-08-26 20:36] LABS: ALBUMIN 3.6 g/dL (3.2-5.5); ALBUMIN/GLOBULIN RATIO 0.9 (1.0-2.2); BILIRUBIN,TOTAL 0.7 mg/dL (0.2-1.0); CALCIUM 9.4 mg/dL (8.5-10.3); CREATININE 1.5 mg/dL (0.6-1.2); MAGNESIUM 1.4 mg/dL (1.7-2.8); POTASSIUM 3.3 mmol/L (3.5-5.0); TOTAL PROTEIN 7.6 g/dL (6.7-8.2)
[2020-08-26 20:56] LABS: ESTIMATED AVERAGE GLUCOSE 111 mg/dL (70-100); HEMOGLOBIN A1c% 5.5 % (4.27-6.07)
== END 2020-08-26 13:59 | disposition home or self-care (01) ==
LOC: DI.S 13:58
PROVIDERS: ATTEND Internal Medicine
DX: M25.579 Pain in unspecified ankle and joints of unspecified foot (principal); E11.9 Type 2 diabetes mellitus without complications; E87.6 Hypokalemia; J98.4 Other disorders of lung; D64.9 Anemia, unspecified
CPT/HCPCS: 36415; 80053; 83036; 83615; 83735; 85025

== ENCOUNTER 2020-10-02 16:45 | Outpatient (CLI) | payer MEDICARE, MEDICAID | END 2020-10-02 16:46 | disposition home or self-care (01) | LOC: LAB.S 16:45 | PROVIDERS: ATTEND Physician Assistant | DX: Z79.01 Long term (current) use of anticoagulants (principal) | CPT/HCPCS: 36416; 85610 ==

== ENCOUNTER 2021-01-18 09:57 | Outpatient (CLI) | payer MEDICARE, MEDICAID ==
[2021-01-18 15:18] LABS: BASOPHILS # (AUTO) 0.1 10^3/uL (0.0-0.1); EOSINOPHILS # (AUTO) 0.2 10^3/uL (0.0-0.7); EOSINOPHILS % (AUTO) 1.8 %; HCT - HEMATOCRIT 42.6 % (42.0-52.0); HGB - HEMOGLOBIN 13.9 g/dL (14.0-18.0); LYMPHOCYTES # (AUTO) 1.6 10^3/uL (1.5-3.5); LYMPHOCYTES % (AUTO) 19.6 %; MEAN CORPUSCULAR HEMOGLOBIN 31.7 pg (27.0-31.0); MEAN CORPUSCULAR HGB CONC 32.6 g/dL (32.0-36.0); MEAN CORPUSCULAR VOLUME 97.3 fL (80.0-94.0); MEAN PLATELET VOLUME 12.4 fL (7.4-11.4); MONOCYTES # (AUTO) 0.6 10^3/uL (0.0-1.0); MONOCYTES % (AUTO) 7.7 %; NEUTROPHILS # (AUTO) 5.8 10^3/uL (1.5-6.6); NEUTROPHILS % (AUTO) 69.8 %; PLT - PLATELET COUNT 305 10^3/uL (130-450); RED BLOOD COUNT 4.38 10^6/uL (4.70-6.10); RED CELL DISTRIBUTION WIDTH 14.6 % (12.0-15.0); WHITE BLOOD COUNT 8.3 x10^3/uL (4.8-10.8)
[2021-01-18 15:50] LABS: ALBUMIN 3.4 g/dL (3.2-5.5); ALKALINE PHOSPHATASE 73 IU/L (42-121); ALT ALANINE AMINOTRANSFERASE 12 IU/L (10-60); AST ASPARTATE AMINOTRANSFERASE 14 IU/L (10-42); BILIRUBIN,TOTAL 0.9 mg/dL (0.2-1.0); BUN - BLOOD UREA NITROGEN 13 mg/dL (6-20); CARBON DIOXIDE - CO2 28 mmol/L (21-32); CHLORIDE 102 mmol/L (101-111); CHOL/HDL RATIO 4.8 (<5.0); CHOLESTEROL 176 mg/dL; GFR - MDRD 78 (>89); GLUCOSE 102 mg/dL (70-100); HDL CHOLESTEROL 37 mg/dL; LDL CHOLESTEROL,CALCULATED 119 mg/dL; LDL/HDL RATIO 3.2 (<3.6); MAGNESIUM 1.5 mg/dL (1.7-2.8); POTASSIUM 3.6 mmol/L (3.5-5.0); SODIUM 139 mmol/L (135-145); TOTAL PROTEIN 6.7 g/dL (6.7-8.2); TRIGLYCERIDES 102 mg/dL; VLDL CHOLESTEROL 20 mg/dL
== END 2021-01-18 09:58 | disposition home or self-care (01) ==
LOC: LAB.S 09:57
PROVIDERS: ATTEND Internal Medicine
DX: N18.9 Chronic kidney disease, unspecified (principal); Z13.220 Encounter for screening for lipoid disorders; E87.6 Hypokalemia; Z79.891 Long term (current) use of opiate analgesic
CPT/HCPCS: 36415; 80053; 80061; 83721; 83735; 85025

== ENCOUNTER 2021-06-19 17:28 | Outpatient (CLI) | payer MEDICARE, MEDICAID ==
[2021-06-19 19:54] LABS: BASOPHILS # (AUTO) 0.1 10^3/uL (0.0-0.1); BASOPHILS % (AUTO) 1.2 %; EOSINOPHILS # (AUTO) 0.1 10^3/uL (0.0-0.7); EOSINOPHILS % (AUTO) 1.3 %; HCT - HEMATOCRIT 41.3 % (42.0-52.0); HGB - HEMOGLOBIN 13.7 g/dL (14.0-18.0); LYMPHOCYTES # (AUTO) 2.6 10^3/uL (1.5-3.5); MEAN CORPUSCULAR HEMOGLOBIN 32.1 pg (27.0-31.0); MEAN CORPUSCULAR HGB CONC 33.2 g/dL (32.0-36.0); MEAN CORPUSCULAR VOLUME 96.7 fL (80.0-94.0); MEAN PLATELET VOLUME 12.2 fL (7.4-11.4); MONOCYTES # (AUTO) 0.8 10^3/uL (0.0-1.0); MONOCYTES % (AUTO) 8.7 %; NEUTROPHILS # (AUTO) 5.3 10^3/uL (1.5-6.6); NEUTROPHILS % (AUTO) 59.6 %; PLT - PLATELET COUNT 301 10^3/uL (130-450); RED BLOOD COUNT 4.27 10^6/uL (4.70-6.10); RED CELL DISTRIBUTION WIDTH 13.4 % (12.0-15.0)
[2021-06-19 20:03] LABS: ALBUMIN 3.9 g/dL (3.2-5.5); ALBUMIN/GLOBULIN RATIO 1.3 (1.0-2.2); BILIRUBIN,TOTAL 0.9 mg/dL (0.2-1.0); CREATININE 1.1 mg/dL (0.6-1.2); POTASSIUM 2.6 mmol/L (3.5-5.0)
[2021-06-19 20:37] LABS: ESTIMATED AVERAGE GLUCOSE 91 mg/dL (70-100); HEMOGLOBIN A1c% 4.8 % (4.27-6.07)
== END 2021-06-19 17:29 | disposition home or self-care (01) ==
LOC: LAB.S 17:28
PROVIDERS: ATTEND Internal Medicine
DX: E11.9 Type 2 diabetes mellitus without complications (principal)
CPT/HCPCS: 36415; 80053; 83036; 85025

== ENCOUNTER 2021-09-18 09:55 | Day surgery (SDC) | payer MEDICARE, MEDICAID ==
[2021-09-18] MEDS ORDERED: CEFAZOLIN SODIUM IN 0.9 % NACL 2 GM/50 ML BAG IV ONE (10:14)
[2021-09-18] MEDS ORDERED: LACTATED RINGERS 1,000 ML IV ONE (10:41)
--- NOTE | 2021-09-18 10:47 | ANESTHESIA ---
Pre-Anesthesia VS, & Labs - Diagnosis left inguinal hernia - Procedure open left inguinal hernia repair with mesh Vital Signs: Temp Pulse Resp BP Pulse Ox 36.6 C 85 16 146/100 H 98 09/18/21 10:16 09/18/21 10:16 09/18/21 10:16 09/18/21 10:16 09/18/21 10:16 Height: 6 ft 5 in Weight (kg): 107.2 kg Body Mass Index: 28.0 BMI Classification: Overweight - NPO >8 hours Home Medications and Allergies Home Medications: Ambulatory Orders Acetaminophen [Tylenol] 650 mg PO Q6H PRN 09/15/21 Omeprazole 20 mg PO DAILY 09/15/21 amLODIPine [Norvasc] 5 mg PO DAILY 09/15/21 Metoprolol Tartrate 50 mg PO DAILY 11/02/18 Zolpidem Tartrate [Ambien] 10 mg PO QPM PRN 11/02/18 lisinopriL [Lisinopril] 40 mg PO DAILY 11/02/18 Cyclobenzaprine [Flexeril] 10 mg PO TID PRN 07/25/20 Gabapentin [Neurontin] 300 mg PO DAILY PM 07/25/20 Acetaminophen [Tylenol] 650 mg PO Q6H PRN 09/15/21 Omeprazole 20 mg PO DAILY 09/15/21 amLODIPine [Norvasc] 5 mg PO DAILY 09/15/21 Allergies/Adverse Reactions: Allergies Allergy/AdvReac Type Severity Reaction Status Date / Time No Known Drug Allergies Allergy Verified 06/16/20 17:46 Anes History & Medical History - Anesthetic History Anesthesia Complications: reports: No previous complications - Medical History Cardiovascular: reports: Hypertension, Atrial fibrillation Pulmonary: reports: Sleep apnea (resolved after weightloss) Gastrointestinal: reports: GERD Urinary: reports: None Neuro: reports: None Musculoskeletal: reports: Gout, Chronic back pain Endocrine/Autoimmune: reports: None Blood Disorders: reports: None Skin: reports: None Smoking Status: Current every day smoker (3-4 cigarettes per day) Psychosocial: reports: No issues indicated History of Cancer?: No - Surgical History General: reports: Bowel surgery, Gastric surgery (gastric bypass), Colonoscopy Exam General: Alert, Oriented x3, Cooperative, No acute distress Dental: Dentures full Upper, Dentures full Lower Mouth Openin Fingerbreadth Neck Mobility: Normal Mallampati classification: II Thyromental Distance: 4-6 cm Mental/Cognitive Status: Alert/Oriented X3, Normal for patient Plan Anesthesia Type: General Consent for Procedure(s) Verified and Reviewed: Yes Code Status: Attempt Resuscitation ASA classification: 3-Severe systemic disease Is this case an emergency?: No
[2021-09-18] MEDS ORDERED: SEVOFLURANE 250 ML LIQUID INH ONE (10:59)
[2021-09-18] MEDS ORDERED: fentaNYL 100 MCG/2 ML VIAL ONE (11:03)
[2021-09-18] MEDS ORDERED: DEXAMETHASONE 4 MG/ML VIAL ONE ×2 (11:03→11:53)
[2021-09-18] MEDS ORDERED: LIDOCAINE-MPF 2% 5 ML VIAL ONE (11:03)
[2021-09-18] MEDS ORDERED: PROPOFOL 200 MG/20 ML VIAL IVP ONE (11:03)
[2021-09-18] MEDS ORDERED: ONDANSETRON 4 MG/2 ML VIAL ONE ×2 (11:03→11:53)
[2021-09-18] MEDS ORDERED: MIDAZOLAM 2 MG/2 ML VIAL ONE (11:07)
[2021-09-18] MEDS ORDERED: BUPIVACAINE 0.25% PF 10 ML VIAL ONE ×2 (11:10→11:56)
--- NOTE | 2021-09-18 11:19 | HISTORY & PHYSICAL EXAMINATION ---
Chief Complaint - Chief Complaint Chief Complaint: left groin bulge History of Present Illness - History Obtained From Records Reviewed: yes History obtained from: pt Exam Limitations: none - History of Present Illness HPI Comment/Other: left inguinal hernia. getting bigger and more painful. History - Past Medical History Cardiovascular: reports: Hypertension, Atrial fibrillation Respiratory: reports: Sleep apnea (resolved after weightloss) Neuro: reports: None Endocrine/Autoimmune: reports: None GI: reports: GERD : reports: None HEENT: reports: Chronic vision loss Psych: reports: Anxiety Musculoskeletal: reports: Gout, Chronic back pain Derm: reports: None MRSA Hx?: No - Past Surgical History General: reports: Bowel surgery, Gastric surgery (gastric bypass), Colonoscopy - POLST Patient has POLST: No Meds/Allgy - Home Medications Home Medications: Ambulatory Orders Medication Instructions Recorded Confirmed Metoprolol Tartrate 50 mg PO DAILY 11/02/18 09/15/21 Zolpidem Tartrate [Ambien] 10 mg PO QPM PRN 11/02/18 09/15/21 lisinopriL [Lisinopril] 40 mg PO DAILY 11/02/18 09/15/21 Apixaban [Eliquis] 5 mg PO BID #74 tablet 07/25/20 09/15/21 Cyclobenzaprine [Flexeril] 10 mg PO TID PRN 07/25/20 09/15/21 Gabapentin [Neurontin] 300 mg PO DAILY PM 07/25/20 09/15/21 Acetaminophen [Tylenol] 650 mg PO Q6H PRN 09/15/21 09/15/21 Omeprazole 20 mg PO DAILY 09/15/21 09/15/21 amLODIPine [Norvasc] 5 mg PO DAILY 09/15/21 09/15/21 - Allergies Allergies/Adverse Reactions: Allergies Allergy/AdvReac Type Severity Reaction Status Date / Time No Known Drug Allergies Allergy Verified 06/16/20 17:46 Review of Systems - Other Findings Other Findings: 10 pt ros as above otherwise unremarkable Exam - Vital Signs Reviewed Vital Signs: Yes Vital Signs: Vital Signs x48h Temp Pulse Resp BP Pulse Ox 09/18/21 10:16 36.6 C 85 16 146/100 H 98 - Physical Exam General Appearance: positive: No acute distress, Alert Eyes Bilateral: positive: PERRL, EOMI, No scleral icterus ENT: positive: No signs of dehydration Neck: positive: No JVD Respiratory: positive: No respiratory distress, Breath sounds nml Cardiovascular: positive: Irregularly irregular Abdomen: positive: Non-tender, Other (left inguinal hernia present) Neurologic/Psychiatric: positive: Oriented x3 Conclusion/Plan - Problem List (1) Inguinal hernia of left side without obstruction or gangrene Conclusion/Plan: plan open repair with mesh. parq held and consent obtained
[2021-09-18] MEDS ORDERED: BUPIVACAINE 0.25% PF 30 ML VIAL SUBQ ONE (11:41)
[2021-09-18] MEDS ORDERED: HYDROmorphone 1 MG/ML CARPUJECT ONE (11:52)
[2021-09-18] MEDS ORDERED: LACTATED RINGERS 950 ML IV ONE (14:01)
[2021-09-18] MEDS ORDERED: ONDANSETRON 4 MG/2 ML VIAL IVP PRN ×2 (14:19→14:22)
[2021-09-18] MEDS ORDERED: MORPHINE 2 MG/ML CARPUJECT IVP PRN (14:19)
[2021-09-18] MEDS ORDERED: fentaNYL 100 MCG/2 ML VIAL IVP PRN (14:19)
[2021-09-18] MEDS ORDERED: HYDROmorphone 0.5 MG/0.5 ML SYRINGE IVP PRN ×2 (14:19→14:22)
[2021-09-18] MEDS ORDERED: ATROPINE ABBOJECT 1 MG/10 ML SYRINGE IVP PRN (14:19)
[2021-09-18] MEDS ORDERED: NALOXONE 0.4 MG/ML VIAL IVP PRN (14:19)
--- NOTE | 2021-09-18 14:20 | ANESTHESIA POST OP EVALUATION ---
Anesthesia Post Eval - Post Anesthesia Eval Vitals: Last Vital Signs Temp 36.5 C 09/18/21 14:10 Pulse 70 09/18/21 14:15 Resp 12 09/18/21 14:15 BP 147/78 H 09/18/21 14:15 Pulse Ox 98 09/18/21 14:15 CV Function Including HR & BP: Stable Pain Control: Satisfactory Nausea & Vomiting: Negative Mental Status: Baseline Respiratory Status: Airway Patent Hydration Status: Satisfactory Anesthesia Complications: None
[2021-09-18] MEDS ORDERED: oxyCODONE 5 MG TABLET PO PRN (14:22)
--- NOTE | 2021-09-18 14:28 | OPERATIVE REPORT ---
Operative Report - General Procedure Date: 09/18/21 Planned Procedure: open left inguinal hernia repair with mesh Pre-Op Diagnosis: left inguinal hernia Procedure Performed: open left inguinal hernia repair with mesh extra degree difficulty Post Op Diagnosis: left inguinal hernia indirect - Procedure Note Primary Surgeon: angel sánchez Anesthesia Technique: General LMA, Local Pathology: not sent Estimated Blood Loss (mL): 5 Drain/Tube Type: Other (none) Indications: painful hernia bulge Findings: 10 cm indirect hernia sac very difficult surgery due to prior obesity and 240 lb weight loss distorting the anatomy Complications: none - Other Other Information/Narrative: Patient was properly identified brought to the operating room and placed in supine position. Sequential compression devices were placed. General anesthesia was induced. He was prepped and draped in a sterile fashion and given preoperative antibiotics. Local anesthetic was given throughout the procedure. A 5 cm incision was made in the direction of Evan's lines just cephalad of the pubic tubercle. Dissection proceeded with cutting current cautery. The superficial epigastric vein was identified clamped divided and tied with 3-0 Vicryl. Dissection proceeded down to the aponeurosis. The aponeurosis was opened in the direction of its fibers and extended to the external ring. Cord structures were mobilized and brought up. He has had a previous gastric bypass and 240 pound weight loss. This made the anatomy very difficult secondary to distortion. Inguinal structures and floor was still quite deep. An hour of time was taken mobilizing the cord structures and bring the cord structures up. It took additional time to define the inguinal ligament and pubic tubercle area. He had a very large indirect hernia sac measuring approximately 10 cm in diameter. Dissecting the soft the cord structures was also quite difficult. The nerves were carefully protected and preserved. Cord structures were mobilized and brought up. An indirect inguinal hernia was present. The hernia sac was mobilized off the cord structures and suture ligated with 2 O silk and further reduced. Preperitoneal fat was removed. The base was tied with 2 O vicryl. Polypropylene mesh was cut to size and with tails. The mesh was secured with multiple interrupted 0 Ethibond sutures. She was placed along the pubic tubercle, Bryan's ligament area and along the shelving border of Poupart's ligament. Sutures were placed medially along the abdominal wall musculature and internal oblique. The medial tail of the mesh was secured to the shelving border of Poupart's ligament with 3 interrupted 0 ethibond sutures recreating the internal ring of appropriate size. An additional suture was placed in the crotch of the mesh recreating an internal ring of appropriate size. Aponeurosis was closed with a running 2-0 Vicryl suture. The opposite was closed with interrupted 3-0 Vicryl suture. Buried interrupted subdermal 3-0 Vicryl sutures were then placed. And was closed with a running 4-0 Monocryl subcuticular suture. Dressing was applied. Patient was awakened and brought to recovery in good condition.
[2021-09-18] MEDS ORDERED: LACTATED RINGERS 1,000 ML IV SCH (15:00)
[2021-09-18 15:13] VITALS: BP 145/81
== END 2021-09-18 09:56 | disposition home or self-care (01) ==
LOC: SDS 09:55
PROVIDERS: ATTEND Surgery
DX: K40.90 Unilateral inguinal hernia, without obstruction or gangrene, not specified as recurrent (principal); F17.210 Nicotine dependence, cigarettes, uncomplicated; I48.91 Unspecified atrial fibrillation
CPT/HCPCS: 49505; A9270; C1781; J0690; J1170; J3490; J7120

== ENCOUNTER 2022-08-31 11:08 | Outpatient (CLI) | payer MEDICARE, MEDICAID ==
[2022-08-31 14:54] LABS: BASOPHILS # (AUTO) 0.1 10^3/uL (0.0-0.1); BASOPHILS % (AUTO) 1.5 %; EOSINOPHILS # (AUTO) 0.2 10^3/uL (0.0-0.7); EOSINOPHILS % (AUTO) 2.9 %; HCT - HEMATOCRIT 39.6 % (42.0-52.0); LYMPHOCYTES # (AUTO) 1.8 10^3/uL (1.5-3.5); MEAN CORPUSCULAR HEMOGLOBIN 31.9 pg (27.0-31.0); MEAN CORPUSCULAR HGB CONC 32.8 g/dL (32.0-36.0); MEAN CORPUSCULAR VOLUME 97.1 fL (80.0-94.0); MEAN PLATELET VOLUME 11.7 fL (7.4-11.4); MONOCYTES # (AUTO) 0.6 10^3/uL (0.0-1.0); MONOCYTES % (AUTO) 10.2 %; NEUTROPHILS # (AUTO) 3.5 10^3/uL (1.5-6.6); NEUTROPHILS % (AUTO) 56.2 %; PLT - PLATELET COUNT 267 10^3/uL (130-450); RED BLOOD COUNT 4.08 10^6/uL (4.70-6.10); RED CELL DISTRIBUTION WIDTH 13.1 % (12.0-15.0); WHITE BLOOD COUNT 6.2 x10^3/uL (4.8-10.8)
[2022-08-31 15:33] LABS: % IRON SATURATION 26 % (20-50); CHOL/HDL RATIO 3.4 (<5.0); CHOLESTEROL 154 mg/dL; HDL CHOLESTEROL 45 mg/dL; IRON 68 ug/dL (45-182); LDL CHOLESTEROL,CALCULATED 98 mg/dL; LDL/HDL RATIO 2.2 (<3.6); MAGNESIUM 1.8 mg/dL (1.7-2.8); TOTAL IRON BINDING CAPACITY 265 ug/dL (250-450); TRANSFERRIN 189 mg/dL (180-329); TRIGLYCERIDES 55 mg/dL; VLDL CHOLESTEROL 11 mg/dL
[2022-08-31 15:59] LABS: FERRITIN 52.2 ng/mL (23.9-336.2)
== END 2022-08-31 11:09 | disposition home or self-care (01) ==
LOC: LAB.S 11:08
PROVIDERS: ATTEND Physician Assistant
DX: K91.2 Postsurgical malabsorption, not elsewhere classified (principal); Z13.220 Encounter for screening for lipoid disorders; E83.42 Hypomagnesemia
CPT/HCPCS: 36415; 80061; 82306; 82607; 82728; 83540; 83721; 83735; 83970; 84466; 85025

== ENCOUNTER 2022-10-06 12:47 | Outpatient (CLI) | payer MEDICARE, MEDICAID ==
--- NOTE | 2022-10-06 16:53 | DEXA Report ---
PROCEDURE: Dexa Spine and/or Hip INDICATIONS: ELEVATED PARATHYROID HORMONE TECHNIQUE: Dual energy x-ray absorptiometry (DXA) was performed on a [facility]. Regions measur ed are the AP Spine, femoral neck, and if needed forearm. COMPARISON: None FINDINGS: Lumbar Spine: Bone Mineral Density 1.0 g/cm/cm,T score -1.9. Osteopenia Left Femoral Neck: Bone Mineral Density 0.7 g/cm/cm, T score -2.8. Osteoporosis Impression: By WHO criteria, this patient has osteopenia of the lumbar spine and osteoporosis of the left femoral neck. Patients with diagnosis of osteoporosis or osteopenia should have regular bone mineral density assess ment. For those eligible for Medicare, routine testing is allowed once every 2 years. Testing frequ ency can be increased for patients who have rapidly progressing disease or for those who are receivin g medical therapy to restore bone mass. Reviewed by: Art Stark MD on 10/06/2022 4:51 PM PDT Approved by: Art Stark MD on 10/06/2022 4:51 PM PDT Station ID: [id number]
== END 2022-10-06 12:48 | disposition home or self-care (01) ==
LOC: DI 12:47
PROVIDERS: ATTEND Physician Assistant
DX: R79.89 Other specified abnormal findings of blood chemistry (principal); M85.89 Other specified disorders of bone density and structure, multiple sites

== ENCOUNTER 2022-11-27 14:29 | Outpatient (CLI) | payer MEDICARE, MEDICAID ==
[2022-11-27 21:02] LABS: ALBUMIN/GLOBULIN RATIO 1.3 (1.0-2.2); BILIRUBIN,TOTAL 0.7 mg/dL (0.2-1.0); CALCIUM 9.4 mg/dL (8.5-10.3); CREATININE 1.3 mg/dL (0.6-1.3); POTASSIUM 3.9 mmol/L (3.5-4.5)
== END 2022-11-27 14:30 | disposition home or self-care (01) ==
LOC: LAB.S 14:29
PROVIDERS: ATTEND Physician Assistant
DX: E11.22 Type 2 diabetes mellitus with diabetic chronic kidney disease (principal); N18.9 Chronic kidney disease, unspecified; R79.89 Other specified abnormal findings of blood chemistry
CPT/HCPCS: 36415; 80053

== ENCOUNTER 2022-11-30 08:00 | Outpatient (CLI) | payer MEDICARE, MEDICAID ==
[2022-12-02 06:10] LABS: CALCIUM URINE 6.1 mg/dL (Not Estab.)
== END 2022-11-30 23:59 | disposition home or self-care (01) ==
LOC: LAB.WCP 08:00
PROVIDERS: ATTEND Physician Assistant
DX: E11.22 Type 2 diabetes mellitus with diabetic chronic kidney disease (principal); N18.9 Chronic kidney disease, unspecified; R79.89 Other specified abnormal findings of blood chemistry
CPT/HCPCS: 82340